=== PATIENT | female | born 1945 | race Caucasian/White ===

== ENCOUNTER 2024-09-04 08:28 | Day surgery (SDC) | payer MEDICARE, BC, SELFPAY ==
[2024-09-04] VITALS (13 sets, daily range): BP systolic 84–116; BP diastolic 38–65; BMI 28.0
[2024-09-04 09:02] LABS: Hemoglobin 12.5 g/dL (12.0-16.0); Mean Corp Hgb Conc. 33.8 g/dL (33.0-37.0); Mean Corpuscular Hgb 29.9 pg (27.0-31.0); Mean Corpuscular Volume 88.5 fL (81.0-99.0); Mean Platelet Volume 9.5 fL (7.4-10.4); Platelet Count 380 10^3/uL (130-400); Red Blood Cell Count 4.18 10^6/uL (4.20-5.40); Red Cell Dist. Width 12.5 % (11.5-14.5); White Blood Cell Count 10.3 10^3/uL (4.8-10.8)
[2024-09-04 09:23] LABS: Glucose - Point of Care 201 mg/dl (70-99)
[2024-09-04 09:30] LABS: ALT (SGPT) 15 U/L (0-35); AST (SGOT) 21 U/L (14-36); Albumin 4.5 g/dl (3.5-5.0); Alkaline Phosphatase 101 U/L (38-126); Blood Urea Nitrogen 62 mg/dl (7-17); Calcium 9.6 mg/dl (8.4-10.2); Carbon Dioxide 21 mmol/L (22-30); Chloride 101 mmol/L (98-107); Estimated Creatinine Clearance 18 ml/min; Glucose 169 mg/dl (70-99); Sodium 139 mmol/L (135-145); Total Bilirubin 0.4 mg/dl (0.2-1.3); Total Protein 7.3 g/dl (6.3-8.2); eGFR 19.92
[2024-09-04] MEDS: LOW STRENGTH ASPIRIN 81 MG PO (09:46)
[2024-09-04] MEDS: NSS 222 ML IV (09:49)
--- NOTE | 2024-09-04 13:07 | ITS.CL.CATH ---
[employer] [facility] Operator - Catheterization
Cardiac Catheterization
Procedure Report:
LEFT HEART CATHETERIZATION
Date of Procedure: September 04, 2024
Procedures performed:
1: Coronary angiography
2: Left ventricular hemodynamic assessment
Primary Care Physician: Dr. Lauren Barnes
Primary Cinnamon Grinder: Dr. Juanjo Morton
INDICATION: The patient is an 79-year-old woman with a past medical history significant for diabetes mellitus, chronic renal insufficiency with a creatinine of 2.5, hypertension, and obesity. She was found to have a markedly abnormal in January with
no antecedent history of chest pain symptoms. Nuclear perfusion imaging and echo at that time suggested a interval significant LAD event. She now reports that she has exertional chest tightness consistent with angina. In retrospect, she thinks
she has had this for several months. In light of her new symptoms and abnormal noninvasive studies she is referred for cardiac catheterization.
ACCESS: The patient was prepped and draped in usual sterile fashion. A 6 [place] sheath was placed in the right radial artery using the Seldinger over the wire technique.
HEMODYNAMIC FINDINGS (mmHg):
LV(s/d,EDP): 118/12, 18
Ao(s/d,m): 115/56, 79
ANGIOGRAPHIC FINDINGS:
Single-plane Left Ventriculography in IVY Projection: Not done with elevated creatinine. Ejection fraction by echocardiography on June 10 showed an ejection fraction of 30 to 35% with dense LAD territory wall motion abnormality.
Coronary Angiography:
Dominance: Right
Left Main: Medium caliber, widely patent.
Left Anterior Descending: The proximal LAD is heavily calcified. There is a large high diagonal branch which is also diffusely calcified proximally. There is a mid smooth 70 to 80% stenosis before the bifurcation into 2 small caliber but long
distal vessels. The more lateral branch is patent with mild luminal irregularities. The larger medial branch has diffuse smooth 70 to 80% proximal disease. The distal portion of this vessel gives rise to a collateral to the apical LAD which fills
poorly at the apex.
Left Circumflex: The left circumflex is a medium caliber vessel that gives rise to 1 major branching diagonal. The circumflex ostium has a smooth 40% stenosis. The OM has a long proximal 7080% stenosis with ESPERANZA-3 distal flow.
Right Coronary: The right coronary artery is a large-caliber dominant vessel that gives rise to a medium caliber posterior descending artery and much larger posterior left ventricular branch. The right coronary artery is widely patent in the AV
groove. The proximal PLV has smooth 30% stenosis followed by smooth 40% stenosis in the AV groove just before the takeoff of a large widely patent posterior left ventricular branch. The posterior descending artery has 80 to 90% stenosis involving
the ostium. The mid and distal vessel are patent with ESPERANZA-3 flow. Very faint right to left collaterals through the septal branches are noted.
Fluoroscopy Time (min): 2.0
Radiation Dose (mGy): 270
DAP (Gy.cm2): 22
Closure device: None. A TR band was applied for hemostasis at the right wrist.
Complications: None.
ASSESSMENT:
1: Severe complex multivessel coronary artery disease with chronic total occlusion of the left anterior descending artery that fills via poor left to left and right to left collaterals.
2: Fairly well compensated filling pressures given severe CAD with cardiomyopathy.
CONCLUSIONS and RECOMMENDATIONS:
1: Medical therapy for severe coronary artery disease and LV systolic dysfunction. She is less than a year out from a significant LAD territory event.
2: Given diabetes and multivessel disease, I think surgical evaluation for CABG is reasonable. Ideally she would get bypass to the PDA, distal OM, major diagonal branch, and the LAD. Given her advanced renal disease she is obviously at high risk
for surgical complications. We could consider multivessel PCI if she has symptoms refractory to medical therapy and is deemed to be a poor surgical candidate. Unfortunately her anatomy does not lend itself to any straightforward catheter-based
interventions. My first intervention would be a ostial right PDA stenting. Stenting in the circumflex and the diagonal branch would require long small caliber stents with high risk for restenosis. I could also consider a PCI attempt on the
occluded proximal LAD.
3: Close clinical follow-up with Dr. Morton as scheduled. I will add Imdur 30 mg to her excellent medical regimen for possible antianginal benefit.
Jeanna Graham M.D.
Copy to: Dr. Lauren Barnes
== END 2024-09-04 14:57 | disposition home or self-care (01) ==
LOC: CATH 08:28
PROVIDERS: ATTENDING PHYSICIAN Internal Medicine Interventional Cardiology; CONSULT PHYSICIAN Thoracic Surgery (Cardiothoracic Vascular Surgery); FAMILY PHYSICIAN Family Medicine; OTHER PHYSICIAN Internal Medicine Cardiovascular Disease
DX: I25.10 Atherosclerotic heart disease of native coronary artery without angina pectoris (principal); R07.89 Other chest pain; I25.82 Chronic total occlusion of coronary artery; E11.22 Type 2 diabetes mellitus with diabetic chronic kidney disease; I12.9 Hypertensive chronic kidney disease with stage 1 through stage 4 chronic kidney disease, or unspecified chronic kidney disease; N18.9 Chronic kidney disease, unspecified; Z79.82 Long term (current) use of aspirin; Z79.84 Long term (current) use of oral hypoglycemic drugs; Z79.85 Long-term (current) use of injectable non-insulin antidiabetic drugs
CPT/HCPCS: 80053; 82962; 85027; 93005; 93458; C1894; Q9967